=== PATIENT | female | born 1940 | race Native Hawaiian/Other Pacific Islander ===

== ENCOUNTER 2016-08-07 10:58 | Outpatient (CLI) | payer OTHER | END 2016-08-07 20:46 | disposition home or self-care (01) | LOC: RAD 10:58 | DX: M81.0 Age-related osteoporosis without current pathological fracture (principal) ==

== ENCOUNTER 2018-12-16 10:43 | Outpatient (CLI) | payer OTHER | END 2018-12-16 23:45 | disposition home or self-care (01) | LOC: RAD 10:43 | DX: Z13.820 Encounter for screening for osteoporosis (principal); N95.8 Other specified menopausal and perimenopausal disorders ==

== ENCOUNTER 2022-07-16 10:32 | Outpatient (CLI) | payer OTHER | END 2022-07-16 17:00 | disposition home or self-care (01) | LOC: RAD 10:32 | PROVIDERS: ATTEND Nurse Practitioner Family | DX: M06.4 Inflammatory polyarthropathy (principal); M15.1 Heberden's nodes (with arthropathy); M15.2 Bouchard's nodes (with arthropathy); R79.89 Other specified abnormal findings of blood chemistry; Z13.820 Encounter for screening for osteoporosis; N95.8 Other specified menopausal and perimenopausal disorders ==